=== PATIENT | female | born 1950 | race Caucasian/White ===

== ENCOUNTER 2023-07-12 10:15 | Outpatient (AMB) | payer OTHER, SELFPAY ==
--- NOTE | 2023-07-12 10:48 | MHC.OFFWIV ---
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 States that she was bitten by her own cat 2 days ago while at home. Later that day, she developed pain and redness in that hand. She has been using Motrin and an ice pack to the area. Reports her cat is an indoor-only cat and is up-to-date on all vaccinations. She denies any fever/chills. [facility] Social History Patient Tobacco Use Status: Never used Tobacco Review of Systems Const All systems reviewed & are unremarkable except as noted in HPI and below Physical Exam Vital Signs: Last Vital Signs Temp 97.9 F 07/12/23 11:55 Pulse 71 07/12/23 11:55 BP 160/80 H 07/12/23 11:55 Pulse Ox 96 07/12/23 11:55 Oxygen Delivery Method Room Air 07/12/23 11:55 BMI result Body Mass Index 28.3 Const General: cooperative, healthy appearing and no acute distress Neck Neck: Yes no lymphadenopathy Resp Effort & Inspection: normal respiratory effort Auscultation: clear to auscultation bilaterally Cardio Rate: regular rate Rhythm: regular rhythm Skin Other: two small scabbed puncture wounds to medial/dorsal aspect of left hand, with slight erythema and swelling to the dorsal aspect of hand. Tenderness to palpation surrounding bite wounds. Extrem General: Yes capillary refill normal and Yes no clubbing, cyanosis or edema Psych Appearance: grossly normal Mental Status: mental status grossly normal Speech and movement: Normal speech and movement present Assessment & Plan Assessment & Plan (1) Cat bite of hand: Code(s): S61.459A - Open bite of unspecified hand, initial encounter; W55.01XA - Bitten by cat, initial encounter Qualifiers: Encounter type: initial encounter Laterality: left Qualified Code(s): S61.452A - Open bite of left hand, initial encounter; W55.01XA - Bitten by cat, initial encounter Plan: Started patient on Augmentin 7 days due to cat bite and sign of developing infection. We reviewed indications, use, possible s/e of medication. If she does not improve with treatment, or if she develops any worsening or new symptoms, she should return to the clinic for further evaluation. She verbalizes understanding and agrees to plan. Medications: New amoxicillin-pot clavulanate 875-125 mg 1 tab PO BID 7 days 14 tabs 0RF S61.452A - Open bite of left hand, initial encounter, W55.01XA - Bitten by cat, initial encounter Coding Level of Care Code Est Pt Level 4 (17406) Diagnoses Cat bite of left hand, initial encounter S61.452A; W55.01XA Encounter type: initial encounter Laterality: left
[2023-07-12 11:55] VITALS: BP 160/80; PULSE 71; TEMP 36.6; O2SAT 96; BMI 28.3
== END 2023-07-12 12:23 | disposition home or self-care (01) ==
PROVIDERS: PCP Internal Medicine; Visit Provider Nurse Practitioner Family
DX: S61.452A Open bite of left hand, initial encounter (principal); W55.01XA Bitten by cat, initial encounter
CPT/HCPCS: 99214

== ENCOUNTER 2024-07-31 11:30 | Outpatient (RCR) | payer OTHER, SELFPAY | END 2024-07-31 12:11 | disposition home or self-care (01) | LOC: HO.OT 11:30 | PROVIDERS: PCP Internal Medicine; Visit Provider Orthopaedic Surgery | DX: M18.11 Unilateral primary osteoarthritis of first carpometacarpal joint, right hand (principal) | CPT/HCPCS: 97035; 97110; 97140; 97165; 97530; 97535 ==

== ENCOUNTER 2025-01-26 15:07 | Outpatient (AMB) | payer OTHER, SELFPAY ==
--- NOTE | 2025-01-26 15:31 | A.OFFVIS_ITS ---
Intake Visit Reasons: RLS/Tremors Allergies No Known Allergies Allergy (Verified 07/12/23 11:59) HPI Comments Details: 74 years old woman with restless legs syndrome and tremor. She was doing all right. Medicine for tremor, propranolol, was working in dexterity was better. Medicine for sleep, pramipexole, was also working and sleep was better. No new symptoms. [facility], [facility] Social History Patient Tobacco Use Status: Never used Tobacco Review of Systems Narrative No breathing difficulties or change in personality. Physical Exam Neuro Other: Mental Status: Alert and oriented to person, place, and time. Normal attention. Normal spontaneous speech, fluency, and comprehension. No obvious issues with mood and memory. Affect is appropriate. Cranial Nerves: CN II: Visual draper full to confrontation, visual acuity intact. CN III, IV, : Pupils equal, round, reactive to light and accommodation. Extraocular movements are normal. CN V: Facial sensation is normal. CN VII: Facial movements symmetrical. CN VIII: Hearing intact to bedside conversation is normal. CN IX, X: Palate elevates symmetrically. CN XI: Shoulder shrug and head turn symmetrical. CN XII: Tongue midline without atrophy or fasciculations. Coordination: [id number] and [id number]-[id number] testing normal. No dysmetria. Gait and Station: No obvious gait abnormality. No ataxia or instability. Extrapyramidal: Minimal tremor in outstretched hands Speech: Normal; no dysarthria or tremor. 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 11/28/23 Code(s): G25.0 - Essential tremor Category: Medical (2) RLS (restless legs syndrome): Code(s): G25.81 - Restless legs syndrome Category: Medical Plan Impression: 1. Benign essential tremor better with propranolol 2. Restless legs syndrome better with pramipexole Recommendations 1. Propranolol 10 mg twice a day 2. Pramipexole 0.125 mg 1 at night Medications: New propranolol 10 mg PO BID 180 tabs 1RF Changed From pramipexole PO To pramipexole 0.125 mg PO ONCE 90 tabs 1RF Coding Level of Care Code Est Pt Level 4 (71429) Diagnoses Benign essential tremor G25.0 RLS (restless legs syndrome) G25.81
--- OUTSIDE RECORDS SUMMARY | 2025-01-26 16:29 | XMS_ITS | Encounter Summary ---
Author Organization [facility] Address [address] [place] [address] Phone Care Team Providers Care Protective Signal Repairer Name Role Phone Hitesh Srivastava MD Primary Care Provider [phone] Bran Bashir DO Unavailable [phone] Man Paez MD Unavailable Encounter Details Date Type Department Care Team (Late st Contact Info) Description 12/29/2024 Orders Only [facility] Medical [facility] Family Medicine [address] [place] [address] Provider, MD [place] [address] [place] [id number] Social History Tobacco Use Types Packs/Day Years Used Date Smoking Tobacco: Never Smokeless Tobacco: Never Alcohol Use Standard Drinks/Week Comments Yes 0 (1 standard drink = 0.6 oz pur e alcohol) rare Child or Family Care Answer Date Record ed Do you have problems with on e of the following making it difficult for you to work, study, or receive health care? No 08/12/2020 Education Answer Date Recorded Are you interested in more education? Not on mary e 08/13/2022 Are you concerned about learning? Not on file 08/13/2022 No 08/13/2022 No 08/13/2022 Food Answer Date Recorded Within the past 6 months we worried whether our food would run out before we got money to buy more. Never True 08/12/2020 Within the past 6 months the food we bought just didn't last and we didn't have enough money to get more. Never True Paying for Meds Answer Date Recorded Do you have trouble paying for medicines? No 08/12/2020 Paying Utility Bills Answer Date Record ed Do you have trouble paying your heating or elect ricity bill? No 08/12/2020 Transportation Answer Date Recorded Has the lack of transportati on kept you from medical appointments or from getting medications? No 08/12/2020 Unemployment Answer Date Recorded Are you currently unemployed or working on a part-time or temporary basis, and looking for work? No 08/12/2020 Digital Access Answer Date Recorded No 08/22/2022 No 08/22/2022 Reliable internet access at home? Not on file 08/22/2022 Device with a working camera? Not on file Intimate Partner Violence Answer Date R ecorded Denied Basic Needs Not on file 04/18/2023 In the past 12 months have y ou been in a relationship with a person who hurts, threatens, or tries to control you? No 04/18/2023 Worried food would run out Not on file 04/18 In the past 12 months have y ou been in a relationship with a person who hurts, threatens, or tries to control you? No 04/18/2023 Comments No Sex and Gender Information Value Date Recorded Sex Assigned at Female 08/04/2021 11:58 PM EDT Legal Sex Female 12:42 PM EDT Gender Identity Female 08/04/2021 11:58 PM EDT Sexual Orientation Straight 08/04/2021 11 :58 PM EDT documented as of this encounter Plan of Treatment Not on file documented as of this encounter Procedures Procedure Name Priority Date/Time Associated Diagnosis Comments OUTSIDE LAB Routine 12/23/2024 2:36 PM EDT documented in this encounter Results * Outside Lab (12/23/2024 2:36 PM EDT) us Historical Provider LAB BLOOD BKR ORDERABLES Final Result documented in this encounter Visit Diagnoses Not on filedocumented in this encounter Additional Health Concerns Assessment Noted Time PHQ-2 Depression Total Score: 0 04/18/19 1:44 PM EST documented as of this encounter Care Teams Protective Signal Repairer Relationship Specialty Start Date End Date Hitesh Srivastava MD [address] [place] [address] PCP - General Internal Medicine 08/05/20 Bran Bashir DO [address] [place] [address] Physical Medicine and Rehabilitation 08/12/20 Man Paez MD [address] [place] [id number] Ophthalmology 08/23/23 documented as of this encounter Additional Source Comments The information contained in this document represents components of the legal health record. It is not the complete legal health record.[facility]
--- OUTSIDE RECORDS SUMMARY | 2025-01-26 16:29 | XMS_ITS | Encounter Summary ---
Author Organization [facility] Address [address] [place] [address] Phone Care Team Providers Care Recruiting Consultant Name Role Phone Hitesh Srivastava MD Primary Care Provider [phone] Bran Bashirin DO Unavailable [phone] Man Paez MD Unavailable Encounter Details Date Type Department Care Team (Late st Contact Info) Description 08/25/2020 Ancillary Orders Non-Invasive Cardiology [address] [place] [address] Hitesh Srivastava MD [address] [facility] [place] [address] [email or web address] ZAVALA (dyspnea on exertion) Social History Tobacco Use Types Packs/Day Years Used Date Smoking Tobacco: Never Smokeless Tobacco: Never Child or Family Care Answer Date Record ed Do you have problems with on e of the following making it difficult for you to work, study, or receive health care? No 08/12/2020 Education Answer Date Recorded Are you interested in help w ith more adult education (for example, completing high school, GED, job training, learning the [place] language, technical skills, or developing parenting skills)? No 08/12/2020 Are you concerned about learning? Not on file 08/12/2020 No 08/12/2020 Yes 08/12/2020 Food Answer Date Recorded Within the past [...] basis, and looking for work? No 08/12/2020 Comments Unknown Sex and Gender Information Value Date Recorded Sex Assigned at Female 08/04/2021 11:58 PM EDT Legal Sex Female 12:42 PM EDT Gender Identity Female 08/04/2021 11:58 PM EDT Sexual Orientation Straight 08/04/2021 11 :58 PM EDT documented as of this encounter Plan of Treatment Not on file documented as of this encounter Results * NC Stress Result for Nuclear Stress Test (08/25/2020 10:37 AM EDT) Max BP Systolic 206 mmHg [facility] Max BP Diastolic 110 mmHg [facility] Max HR 123 BPM [facility] Resting HR 93 BPM [facility] Resting BP Systolic 160 mmHg [facility] Resting BP Diastolic 84 mmHg [facility] Peak METS 2.4 METS [facility] Peak HR 111 BPM [facility] Anatomical Region Laterality Modality Heart Other 08/25/2020 10:0 5 AM EDT 08/25/2020 10:37 AM EDT Narrative 08/25/2020 10:53 AM EDT Response to Stress The patient exercised for minutes seconds, achieving 2.4 METS at peak exercise. Baseline blood pressure was 160/84 mmHg, and baseline heart rate was 93 bpm. The patient achieved a peak heart rate of 111 bpm, which is% of their maximum predicted heart rate. REPORT- Pt exercised for 9:30 min on a JOHN protocol achieving 7.0 METS. Test terminated due to fatigue/shortness of breath . Baseline resting HR was 93bpm. Max heart rate achieved was 123bpm (82%MPHR). Test was converted to a walking Regadenson test due to not achieving MPHR during exercise due to shortness of breath. 1. EKG - Baseline EKG showed sinus rhythm. During exercise there were No ischemic EKG changes that were seen, there was artifact which made it difficult to interpret. 2. SYMPTOMS - No chest pain 3. EXERCISE PHYSIOLOGY -Good functional capacity for age. BP 160/84 at rest, BP 206/110 during exercise, BP 130/74 on discharge from stress lab. 4. ARRHYTHMIAS - occasional PVC's Conclusion - There were no EKG changes suggestive of ischemia that were interpretable, without symptoms concerning for angina. Nuclear images pending and will be reported separately. Hypertensive throughout testing. Rachel Brink, THINNER SPRAYER with Dr. Peoples. us Hitesh Srivastava MD CV NM CARDIAC Final Resu lt documented in this encounter Visit Diagnoses Diagnosis ZAVALA (dyspnea on exertion) Other dyspnea and respiratory abnormality ZAVALA (dyspnea on exertion) Other dyspnea and respiratory abnormality documented in this encounter Additional Health Concerns Assessment Noted Time PHQ-2 Depression Total Score: 0 08/13/19 8:58 AM EDT documented as of this encounter Care Teams Recruiting Consultant Relationship Specialty Start Date End Date Hitesh Srivastava MD [address] [facility] [place] [address] PCP - General Internal Medicine 08/05/20 Bran Bashir DO [address] [facility] [place] [address] Physical Medicine and Rehabilitation 08/12/20 Man Paez MD [address] [place] [id number] Ophthalmology 08/23/23 documented as of this encounter Additional Source Comments The information contained in this document represents components of the legal health record. It is not the complete legal health record.[facility]
--- OUTSIDE RECORDS SUMMARY | 2025-01-26 16:29 | XMS_ITS | Clinical Summary ---
Author Organization [address] Address [address] [place] [id number] Phone Care Team Providers Care Wire Turning Machine Operator Name Role Phone Hitesh Srivastava MD Primary Care Provider [phone]- [phone] Surgical History Surgery Date Site/Laterality Comments MASTECTOMY Left PROCEDURE: HISTORICAL MASTECTOMY; COMMENT: with reconstruction, OTHER SURGICAL HISTORY Left PROCEDURE: LAPAROSCOPY PROCEDURE NEC; COMMENT: for infertility, TONSILLECTOMY PROCEDURE: HISTORICAL TONSILLECTOMY COLONOSCOPY 01/09/2018 PROCEDURE: HISTORICAL COLONOSCOPY; COMMENT: 3 mm rectal polyp: hyperplastic. BREAST BIOPSY Left PROCEDURE: BX BREAST; PERC NEEDLE CORE W/IMAG GUID; COMMENT: 1993 BREAST LUMPECTOMY 1993 Left PROCEDURE: HISTORICAL BREAST LUMPECTOMY; COMMENT: chemo only Medical History Medical History Date Comments Hypertension DX:Hypertension Dyslipidemia DX:Dyslipidemia Anxiety 03/21/2017 DX:Anxiety History of breast cancer 03/21/2017 DX:Hist ory of breast cancer; COMMENT: Lumpectomy and radiation 1993, breast mastectomy w/ reconstruction. 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 Garcia Personal history of malignan t neoplasm of breast DX:Personal history of malig nant neoplasm of breast; COMMENT: lt breast ca-1993 Family History Medical History Relation Name Comments No Known Problems Brother Hypertension Father [place](at age 82/83 ), dementia Bladder Cancer Maternal Grandmother Breast cancer Mother 50's CA ovarian, de pression Relation Name Status Comments Brother Alive Father Maternal Grandmother Mother 50's Social History Tobacco Use Types Packs/Day Years Used Date Smoking Tobacco: Never Smokeless Tobacco: Never Alcohol Use Standard Drinks/Week Comments Yes 0 (1 standard drink = 0.6 oz pur e alcohol) Comments Unknown Sex and Gender Information Value Date Recorded Sex Assigned at Not on file Legal Sex Female 5:55 AM EST Gender Identity Not on file Sexual Orientation Not on file Obstetrics History Para Term AB IAB SAB Ectopic Multiple Livin g Live Births 1 Date Outcome GA Total Labor Labor/2nd/3rd Weight Sex Type Anes PTL Erlinda A1 A5 Name Clin Term Last Filed Vital Signs Vital Sign Reading Time Taken Comments Blood Pressure 129/82 10/04/2022 3:16 PM EDT Pulse 63 10/04/2022 3:16 PM EDT Temperature - - Respiratory Rate - - Oxygen Saturation - - Inhaled Oxygen Concentration - - Weight 67.6 kg (149 lb) 10/04/2022 3:16 PM EDT Height 157.5 cm (5' 2 ) 09/05/2022 12:56 PM EDT Body Mass Index 27.25 09/05/2022 12:56 PM EDT Plan of Treatment Upcoming Encounters Date Type Department Care Team (Late st Contact Info) Description 07/08/2025 1:40 PM EDT Appointment Radiology Department [address] [phone] Health Maintenance Due Date Last Done Comments Colorectal Cancer Screening: Colonoscopy 1950 Zoster Vaccines (1 of 2) 2000 Falls Risk Assessment 03/04/2022 Medicare Annual Wellness Visit 03/04/2022 Social Influencers of Health Screening 03/04/2022 Hypertension/CHF/CAD Annual BMP Blood Test 11/03/2023 11/02/2022, 08/12/2020 Depression Screening 03/26/2024 COVID-19 Vaccine ( season) 2024 04/15/2021, 09/01/2020, 08/04/2020 Influenza Vaccine (#1) 2024 , 02/09/2021, 02/09/2019, Additional history exists RSV Immunization Adult Patients (1 - 1-dose 75+ series) 2025 Breast Cancer Screening 07/02/2026 07/03/19 25, 06/27/2023, 06/27/2023, Additional history exists DTaP,Tdap,and Td Vaccines (2 - Td or Tdap) 03/16/2027 03/16/2017 Cholesterol Screening (Lipid Panel) 11/03/2027 11/02/2022 Osteoporosis Screening (Bone Density Screening) 09/24/2030 09/24/2020 Pneumococcal Vaccine: 50+ Years Completed 10/10/2016, 09/28/2015 Hepatitis C Screening Completed 11/02/2022 HIB Vaccines Aged Out No longer eligi ble based on patient's age to complete this topic HPV Vaccines Aged Out No longer eligi ble based on patient's age to complete this topic Hepatitis A Vaccines Aged Out No long er eligible based on patient's age to complete this topic Hepatitis B Vaccines Aged Out No long er eligible based on patient's age to complete this topic IPV Vaccines Aged Out No longer eligi ble based on patient's age to complete this topic MMR Vaccines Aged Out No longer eligi ble based on patient's age to complete this topic Meningococcal ACWY Vaccine Aged Out N o longer eligible based on patient's age to complete this topic Meningococcal B Vaccine Aged Out No l onger eligible based on patient's age to complete this topic RSV Immunization Patients Under 20 months Aged Out No longer eligible based on patient's age to complete this topic Varicella Vaccines Aged Out No longer eligible based on patient's age to complete this topic Procedures Procedure Name Priority Date/Time Associated Diagnosis Comments MG MAMMO DIGITAL SCREENING W NICA RIGHT Routine 07/02/2024 1:48 PM EDT Encounter for screening mammogram for breast cancer DXA BONE DENSITY STUDY 1+ SITS AXIAL SKEL Routine 09/24/2020 2:09 PM EDT Other specified disorders of bone density and structure, unspecified site from Last 3 Months or Most Recently Relevant to Health Maintenance Results * MG Mammo Digital Screening w Nica Right (07/02/2024 1:48 PM EDT) Anatomical Region Laterality Modality Breast Right Mammography 07/03/2024 8:18 AM EDT Impressions 07/03/2024 8:22 AM EDT RIGHT BREAST: Negative, no evidence of malignancy. Normal interval follow-up is recommended in 12 months. BREAST DENSITY: C - The breasts are heterogeneously dense which may obscure small masses. BI-RADS CATEGORY: 1 - NEGATIVE RECOMMENDATION: Screening right mammogram is recommended in 1 year. Mammo Location: [facility], [address] [place] [address], [id number], . -------- FINAL REPORT -------- Dictated By: Naldo Hubbard Dictated Date: 07/03/2024 08:18 ET Assigned Physician: Naldo Hubbard Reviewed and Electronically Signed By: Naldo Hubbard Signed Date: 07/03/2024 08:22 ET Workstation ID: [id number] Transcribed By: Self Edit Transcribed Date: 07/03/2024 08:18 ET Narrative 07/03/2024 8:22 AM EDT STUDY: Unilateral right screening mammography with tomosynthesis and CAD History: Personal history of left mastectomy for breast cancer sometime after 1993 TECHNIQUE: Unilateral right full-field digital screening mammography is obtained and read in conjunction with computer-aided detection. Tomosynthesis as well as 2-D C view imaging were obtained. COMPARISON: Comparison made to multiple prior, most recent June 27, 2023, and most remote August 12, 2014. RIGHT BREAST: No significant masses, suspicious calcifications or other abnormalities are seen. Procedure Note Naldo Hubbard MD - 07/03/2024 STUDY: Unilateral right screening mammography with tomosynthesis and CAD History: Personal history of left mastectomy for breast cancer sometimeafter 1993 TECHNIQUE: Unilateral right full-field digital screening mammography isobtained and read in conjunction with computer-aided detection.Tomosynthesis as well as 2-D C view imaging were obtained. COMPARISON: Comparison made to multiple prior, most recent June 27, 2023,and most remote August 12, 2014. RIGHT BREAST: No significant masses, suspicious calcifications or otherabnormalities are seen. IMPRESSION: RIGHT BREAST: Negative, no evidence of malignancy. Normal intervalfollow-up is recommended in 12 months. BREAST DENSITY: C - The breasts are heterogeneously dense which mayobscure small masses. BI-RADS CATEGORY: 1 - NEGATIVE RECOMMENDATION: Screening right mammogram is recommended in 1 year. Mammo Location: [facility], [address] [place] [address], [id number], . -------- FINAL REPORT -------- Dictated By: Naldo Hubbard Dictated Date: 07/03/2024 08:18 ET Assigned Physician: Naldo Hubbard Reviewed and Electronically Signed By: Naldo Hubbard Signed Date: 07/03/2024 08:22 ET Workstation ID: [id number] Transcribed By: Self Edit Transcribed Date: 07/03/2024 08:18 ET us Hitesh Srivastava MD IMG BI PROCEDURES Final Re sult * DXA BONE DENSITY STUDY 1+ SITS AXIAL SKEL (09/24/2020 2:09 PM EDT) Anatomical Region Laterality Modality Bone Densitometr y 01/22/2020 2:17 PM EDT Narrative 09/24/2020 5:16 PM EDT Clinical history: other(see comments) Scans of the lumbar spine and hips were performed on a [employer] fan beam bone densitometer. Bone mineral density measurements and associated T and Z scores respectively are as follows: Lumbar Spine: L1-L4 BMD: 0.975 g/cm2 T-Score: -0.7 Z-Score: 1.5 Left Proximal Femur: Neck BMD: 0.624 g/cm2 T-Score: -2.0 Z-Score: -0.2 Total BMD: 0.759 g/cm2 T-Score: -1.5 Z-Score: Zero Compared with standards for the young adult, lowest measured bone density places the patient in the W.H.O. osteopenic range. FRAX 10 year probability of major osteoporotic fracture: 12% FRAX 10 year probability of hip fracture: 2.4% IMPRESSION: IMPRESSION: Osteopenia. The NOF guidelines recommend that FDA approved medical therapies be considered in postmenopausal women and men age >50 years with a: i. Hip or vertebral (clinical or morphometric) fracture ii. T score of < -2.5 at the spine or hip iii. 10 year fracture probability by FRAX of >3% for hip fracture, or >20% for major osteoporotic fracture PLEASE NOTE: W.H.O. classification is based on lowest measured density at the spine, femoral neck, or total hip.This classification has prognostic significance when applied to post menopausal women and older men. 1) The World Health Organization defines low BMD as follows: T-score Normal at or > -1 Osteopenia < -1 and > -2.5 Osteoporosis at or < -2.5 without fractures Established osteoporosis < -2.5 with fractures Procedure Note Larry Coffey MD - 03/14/2022 Clinical history: other(see comments) Scans of the lumbar spine and hips were performed on a [employer] beam bone densitometer. Bone mineral density measurements and associated T and Z scoresrespectively are as follows: Lumbar Spine: L1-L4 BMD: 0.975 g/cm2 T-Score: -0.7 Z-Score: 1.5 Left Proximal Femur: Neck BMD: 0.624 g/cm2 T-Score: -2.0 Z-Score: -0.2 Total BMD: 0.759 g/cm2 T-Score: -1.5 Z-Score: Zero Compared with standards for the young adult, lowest measured bone densityplaces the patient in the W.H.O. osteopenic range. FRAX 10 year probability of major osteoporotic fracture: 12% FRAX 10 year probability of hip fracture: 2.4% IMPRESSION: IMPRESSION: Osteopenia. The NOF guidelines recommend that FDA approved medical therapies beconsidered in postmenopausal women and men age >50 years with a: i. Hip or vertebral (clinical or morphometric) fracture ii. T score of < -2.5 at the spine or hip iii. 10 year fracture probability by FRAX of >3% for hip fracture, or >20%for major osteoporotic fracture PLEASE NOTE: W.H.O. classification is based on lowest measured density at the spine,femoral neck, or total hip.This classification has prognostic significance when applied to postmenopausal women and older men. 1) The World Health Organization defines low BMD as follows: T-score Normal at or > -1 Osteopenia < -1 and > -2.5 Osteoporosis at or < -2.5 withoutfractures Established osteoporosis < -2.5 with fractures us Genevieve Figueroa MD IMG DXA PROCEDURES Final Re sult from Last 3 Months or Most Recently Relevant to Health Maintenance Insurance [employer] MEDICARE [employer]VANTAGE Care Teams Wire Turning Machine Operator Relationship Specialty Start Date End Date Hitesh Srivastava MD [address] [place] [address], [address] [place], [place] [phone] PCP - General Internal Medicine 07/02/24
--- OUTSIDE RECORDS SUMMARY | 2025-01-26 16:29 | XMS_ITS | Encounter Summary ---
Author Organization [facility] Address [address] [place] [id number] Phone Care Team Providers Care Agriscience Technology Instructor Name Role Phone Pcp, Unknown Primary Care Provider UnavailHitesh Valdes MD Primary Care Provider [phone] Bran Bashir DO Unavailable [phone] Man Paez MD Unavailable Reason for Referral * Outpatient Procedure - Closed Specialty Diagnoses / Procedures Referred By Contac t Referred To Contact Diagnoses Cough Dyspnea, unspecified type SOB (shortness of breath) Procedures Adult Echo TTE Ji Collier DO Phone: tel: fax: [email or web address] Referral ID Status Reason Start Date Expiration Date Visits Re quested Visits Authorized [id number] Closed 08/03/2020 08/03/2021 1 1 Encounter Details Date Type Department Care Team (Late st Contact Info) Description 08/03/2020 Transcribe Orders Virtual Department [address] [place] [address] Ji Collier DO [address] [phone] [email or web address] Cough (Primary Dx); Dyspnea, unspecified type; SOB (shortness of breath) Social History Tobacco Use Types Packs/Day Years Used Date Smoking Tobacco: Never Assessed Comments Unknown Sex and Gender Information Value Date Recorded Sex Assigned at Female 08/04/2021 11:58 PM EDT Legal Sex Female 12:42 PM EDT Gender Identity Female 08/04/2021 11:58 PM EDT Sexual Orientation Straight 08/04/2021 11 :58 PM EDT documented as of this encounter Plan of Treatment Not on file documented as of this encounter Results * TTE COMPREHENSIVE (09/14/2020 1:16 PM EDT) Weight 65 kg Systolic BP 170 mmHg Diastolic BP 86 mmHg Left Atrium Dimension Anterior-Posterior 30 15 - 40 mm Aortic Valve Peak Velocity 113.0 cm/s Aortic Valve Peak Gradient 5 mmHg Aortic Sinus Diameter 30 mm Ascending Aorta Diameter 30 mm Inferior Vena Cava Diameter 8 0.0 - 21 mm Interventricular Septum Thickness 11 mm Left Ventricle Internal Diameter End Diastole 41 37 - 52 mm Left Ventricle Internal Diameter End Systole 30 22 - 35 mm Left Ventricular Outflow Tract Diameter 19.0 mm LVOT VTI REST 154 mm Left Ventricular Outflow Tract Velocity 0.8 m/s Left Ventricular Outflow Tract Gradient at Rest 3 mmHg Left Ventricular Posterior Wall Thickness 10 mm Ejection Fraction 53 50 - 75 Percent Mitral Valve A Wave Speed 102.0 cm/s Mitral Valve E Wave Speed 45.4 cm/s Right Ventricle Basal Diameter 19.7 25 - 41 mm Raw LV EF% 46 % Left Atrial Volume 39 mL Right Ventricle TAPSE 18.0 mm Right Ventricle Pulse Doppler S Wave 11.6 cm/s Anatomical Region Laterality Modality Heart Ultrasound Narrative 09/14/2020 2:04 PM EDT Normal LV size and function EF 55 to 60%. Normal diastolic function for age. Normal RV size and function. Mild mitral regurgitation. Left Ventricle The left ventricular cavity size and wall thickness are normal. Left ventricular systolic function is normal. There are no segmental left ventricular wall motion abnormalities noted. The estimated ejection fraction is 53% (Normal 50-75%). The left ventricular ejection fraction was measured by the single dimension method. Doppler profiles appear consistent with impaired left ventricular relaxation (a sign of diastolic dysfunction). There is no evidence of left ventricular thrombus. Right Ventricle The right ventricular size is normal. The right ventricular systolic function is normal. Left Atrium The left atrium is normal in size. The left atrial anterior-posterior dimension measures 30 mm (normal 15-40 mm). The LA volume is 39 mL. The pulmonary venous flow profiles are normal. Right Atrium The right atrium is normal in size. The IVC is normal in size (2.1cm or less). The IVC measures 8 mm (normal <=21 mm). The IVC demonstrates normal collapse with inspiration which is consistent with normal RA pressure. Mitral Valve The mitral valve appears normal. The E/A ratio is 0.4. The Med E' Sergio is 4.1 cm/s and the Lat E' Sergio is 6.6 cm/s. The E/E' AVG is 8.4. There is no evidence of mitral stenosis. There is trace mitral regurgitation detected by spectral and color Doppler. Tricuspid Valve The tricuspid valve appears normal. There is no evidence of tricuspid stenosis. There is no evidence of significant tricuspid regurgitation by color and spectral Doppler. There is an insufficient tricuspid regurgitation Doppler profile to calculate a right ventricular systolic pressure. Aortic Valve The aortic valve appears normal. The aortic valve is tricuspid. There is no evidence of valvular aortic stenosis. The peak aortic valve gradient is 5 mmHg. The visualized portions of the thoracic aorta appear normal. Pulmonic Valve The pulmonary valve appears normal. There is no evidence of pulmonic stenosis. There is no evidence of pulmonary regurgitation by color and spectral Doppler. Pericardium There is no evidence of pericardial effusion. Interatrial Septum The interatrial septum appears normal. General Findings The image quality was fair (3). Technique(s) used in the evaluation: Color flow Doppler and Spectral Doppler. The predominant rhythm during the study was sinus. Comparison Findings No prior studies for comparison. Ji Collier DO CV ECHO ORDERABLES Final Res ult documented in this encounter Visit Diagnoses Diagnosis Cough- Primary Dyspnea, unspecified type Cough Dyspnea, unspecified type documented in this encounter Care Teams Agriscience Technology Instructor Relationship Specialty Start Date End Date Pcp, Unknown PCP - General 07/06/20 08/04/20 Hitesh Srivastava MD [address] [place] [address], [address] [place] [id number] PCP - General Internal Medicine 08/05/20 Bran Bashir DO [address] [facility], [address] [place] [address] Physical Medicine and Rehabilitation 08/12/20 Man Paez MD [address] [place] [id number] Ophthalmology 08/23/23 documented as of this encounter Additional Source Comments The information contained in this document represents components of the legal health record. It is not the complete legal health record.[facility]
--- OUTSIDE RECORDS SUMMARY | 2025-01-26 16:29 | XMS_ITS | Encounter Summary ---
Author Organization [facility] Address [address] [facility] [address] [place] [address] Phone Care Team Providers Care Ham Boner Name Role Phone Hitesh Srivastava MD Primary Care Provider [phone] Bran Bashir DO Unavailable [phone] Man Paez MD Unavailable Encounter Details Date Type Department Care Team (Late st Contact Info) Description 08/06/2020 Transcribe Orders Virtual Department [address] [place] [address] Ji Collier DO 269 [facility] [place] [facility], [address] [phone] [email or web address] Dyspnea on exertion (Primary Dx); Cough Social History Tobacco Use Types Packs/Day Years [...] documented as of this encounter Results * Pulmonary Function Test Reason for Exam: Dyspnea/Shortness of Breath, Cough; Type of PFT Test: LungVolumes, DLCO, Spirometry with bronchodilator; Performing Location: [facility] (09/14/2020 2:10 PM EDT) FEV1 2.19 liters FVC 2.68 liters FEV1/FVC 82 % TLC 4.49 liters DLCO 13.4 ml/mmHg sec Anatomical Region Laterality Modality Other Impressions 09/14/2020 2:10 PM EDT PULMONARY FUNCTION STUDIES Full pulmonary function studies were performed on this 70 y.o. year-old female for evaluation of dyspnea and cough. Review of the medical record reveals that the patient is a never smoker. Prior pulmonary function studies are not available for comparison. SPIROMETRY: The FEV1 is normal at 2.19 L or 119% predicted. The FVC is normal at 2.68 L or 103% predicted. The FEV1/FVC ratio is normal at 82%. After the administration of a bronchodilator agent, there is no significant change. Mid flows and peak flows are normal. FLOW-VOLUME LOOPS: Evaluation of the flow-volume loops reveals normal morphology of both the inspiratory and expiratory limbs with no significant difference when comparing the tracings performed pre- and post-bronchodilator. LUNG VOLUME MEASUREMENTS BY PLETHYSMOGRAPHY: The total lung capacity is normal at 4.49 L or 102% predicted. The functional residual capacity is normal at 2.32 L or 90% predicted. DIFFUSION CAPACITY: The diffusion capacity is mildly impaired at 13.4 mL/mmHg sec or 76% predicted. Resting oxygen saturation is 99% on room air. IMPRESSION: Mildly abnormal pulmonary function studies as evidenced by an isolated mild impairment in diffusion capacity which, in this clinical context, may be secondary to anemia, pulmonary vascular disease and/or early interstitial lung disease. Lung volumes are normal. Spirometry reveals no evidence of airflow limitation and no bronchodilator response. If a diagnosis of cough variant asthma is in question, a methacholine challenge study could be obtained to further evaluate this Ji Collier DO PFT ORDERABLES Final Result documented in this encounter Visit Diagnoses Diagnosis Dyspnea on exertion- Primary Other dyspnea and respiratory abnormality Cough Dyspnea on exertion Other dyspnea and respiratory abnormality Cough documented in this encounter Care Teams Ham Boner Relationship Specialty Start Date End Date Hitesh Srivastava MD [address] [place] [address], [address] [place] [address] PCP - General Internal Medicine 08/05/20 Bran Bashir DO [address] [facility], [address] [place] [address] Physical Medicine and Rehabilitation 08/12/20 Man Paez MD [address] [place] [address] [email or web address] Ophthalmology 08/23/23 documented as of this encounter Additional Source Comments The information contained in this document represents components of the legal health record. It is not the complete legal health record.[facility]
--- OUTSIDE RECORDS SUMMARY | 2025-01-26 16:29 | XMS_ITS | Encounter Summary ---
Author Organization [facility] Address [address] [place] [address] [place] [phone] Phone Care Team Providers Care Benefits Officer Name Role Phone Pcp, Unknown Primary Care Provider Unavailabl e Hitesh Srivastava MD Primary Care Provider [phone] Bran Bashir DO Unavailable [phone] Man Paez MD Unavailable Encounter Details Date Type Department Care Team (Late st Contact Info) Description 08/03/2020 Procedure [facility] [address] [place], [place] [phone] Social History Tobacco Use Types Packs/Day Years Used Date Smoking Tobacco: Never Smokeless Tobacco: Never Comments Unknown Sex and Gender Information Value Date Recorded Sex Assigned at Female 08/04/2021 11:58 PM EDT Legal Sex Female 12:42 PM EDT Gender Identity Female 08/04/2021 11:58 PM EDT Sexual Orientation Straight 08/04/2021 11 :58 PM EDT documented as of this encounter Plan of Treatment Not on file documented as of this encounter Visit Diagnoses Not on filedocumented in this encounter Additional Health Concerns Assessment Noted Time PHQ-2 Depression Total Score: 0 08/13/19 8:58 AM EDT documented as of this encounter Care Teams Benefits Officer Relationship Specialty Start Date End Date Pcp, Unknown PCP - General 07/06/20 08/04/20 Hitesh Srivastava MD [address] [facility], [address] [place] [address] PCP - General Internal Medicine 08/05/20 Bran Bashir DO [address] [facility], [address] [place] [address] Physical Medicine and Rehabilitation 08/12/20 Man Paez MD [address] [place] [id number] [email or web address] Ophthalmology 08/23/23 documented as of this encounter Additional Source Comments The information contained in this document represents components of the legal health record. It is not the complete legal health record.[facility]
--- OUTSIDE RECORDS SUMMARY | 2025-01-26 16:29 | XMS_ITS | Encounter Summary ---
Author Organization [facility] Address [address] [place] [address] Phone Care Team Providers Care Agriculture Consultant Name Role Phone Hitesh Srivastava MD Primary Care Provider [phone] Bran Bashir DO Unavailable [phone] Man Paze MD Unavailable Encounter Details Date Type Department Care Team (Late st Contact Info) Description 12/03/2020 Transcribe Orders Virtual Department [address] [place] [address] Ji Collier DO [address] [facility], [facility] [address] [place], [place] [id number] [email or web address] Interstitial lung disease (Primary Dx) Social History Tobacco Use Types Packs/Day Years [...] high school, GED, job training, learning the Qatari language, technical skills, or developing parenting skills)? [...] documented as of this encounter Visit Diagnoses Diagnosis Interstitial lung disease- Primary Postinflammatory pulmonary fibrosis documented in this encounter Additional Health Concerns Assessment Noted Time PHQ-2 Depression Total Score: 0 08/13/19 8:58 AM EDT documented as of this encounter Care Teams Agriculture Consultant Relationship Specialty Start Date End Date Hitesh Srivastava MD [address] [place] [address], [address] [place] [address] PCP - General Internal Medicine 08/05/20 Bran Bashir DO [address] [place] [address], [address] [place] [address] Physical Medicine and Rehabilitation 08/12/20 Man Paez MD [address] [place] [id number] Ophthalmology 08/23/23 documented as of this encounter Additional Source Comments The information contained in this document represents components of the legal health record. It is not the complete legal health record.[facility]
--- OUTSIDE RECORDS SUMMARY | 2025-01-26 16:29 | XMS_ITS | Encounter Summary ---
Author Organization [facility] Address [address] [facility] [address] [place] [address] Phone Care Team Providers Care Whipper Name Role Phone Hitesh Srivastava MD Primary Care Provider [phone] Bran Bashir DO Unavailable [phone] Man Paez MD Unavailable Encounter Details Date Type Department Care Team (Late st Contact Info) Description 09/02/2020 Transcribe Orders [facility] [address] [place] [address] Ji Collier DO [address] [facility], [facility] [address] [place], [place] [id number] [email or web address] Social History Tobacco Use Types Packs/Day Years [...] high school, GED, job training, learning the Brazilian language, technical skills, or developing parenting skills)? [...] documented as of this encounter Care Teams Whipper Relationship Specialty Start Date End Date Hitesh Srivastava MD [address] [place] [address], [address] [place] [address] PCP - General Internal Medicine 08/05/20 Bran Bashir DO [address] [facility], [address] [place] [address] Physical Medicine and Rehabilitation 08/12/20 Man Paez MD [address] [place] [phone] Ophthalmology 08/23/23 documented as of this encounter Additional Source Comments The information contained in this document represents components of the legal health record. It is not the complete legal health record.[facility]
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
== END 2025-01-26 15:36 | disposition home or self-care (01) ==
LOC: HO.HSM 15:08
PROVIDERS: PCP Internal Medicine; Visit Provider Psychiatry & Neurology Neurology
DX: G25.0 Essential tremor (principal); G25.81 Restless legs syndrome
CPT/HCPCS: 99214